=== PATIENT | female | born 1970 ===

== ENCOUNTER 2018-11-23 05:42 | Day surgery (SDC) | payer OTHER ==
[~2018-11-23 05:42] MED LIST: ARAVA10 MG PO; ESTRADIOL0.5 MG PO; FOSAMAX70 MG PO; PERCOCET 5-3251 EACH PO; VITAMIN D10000 UNIT PO
[2018-11-23] MEDS ORDERED: PERCOCET 5-3251 EACH PO (09:24)
== END 2018-11-23 13:10 | disposition home or self-care (01) ==
LOC: CIR.AMB 05:42
DX: D35.1 Benign neoplasm of parathyroid gland (principal)